=== PATIENT | female | born 1990 | race Two or more races ===

== ENCOUNTER 2024-10-08 05:22 | Day surgery (SDC) | payer OTHER ==
[2024-09-28 12:26] VITALS: BP 112/76
[~2024-10-08] VITALS: Ht 172.7 cm; Wt 64.4 kg
[~2024-10-08 05:22] MED LIST: INTESTINEX680 M1 PO; PRENATABS RX T1 EACH PO
[2024-10-08] MEDS ORDERED: DIBUCAINE 30 GM TUBE ONE (07:07)
[2024-10-08] MEDS ORDERED: POVIDONE-IODINE 118 ML BOTT TOP ONE (07:07)
[2024-10-08] MEDS ORDERED: LIDOCAINE HCL 1%/EPINEPHRINE 20ML VIAL IJ ONE (07:07)
[2024-10-08] MEDS ORDERED: CEFTRIAXONE SODIUM 2,000 MG VIAL ONE (07:07)
[2024-10-08] MEDS ORDERED: BUPIVACAINE HCL/MPF 0.5% 30ML VIAL ONE (07:07)
[2024-10-08] MEDS ORDERED: HEMOSTATIC MATRIX 1 KIT KIT TOP ONE (07:07)
[2024-10-08] MEDS ORDERED: METRONIDAZOLE/SODIUM CHLORIDE 500 MG/100 ML PIGGYBACK IV ONE (07:08)
[2024-10-08] MEDS ORDERED: PERCOCET 5-3251 EACH PO (08:18)
[2024-10-08] MEDS ORDERED: RECTICARE30 GM TOP (08:19)
== END 2024-10-08 12:10 | disposition home or self-care (01) ==
LOC: CIR.AMB 05:22
PROVIDERS: ATTEND Surgery
DX: D12.9 Benign neoplasm of anus and anal canal (principal)